=== PATIENT | female | born 1980 | race Caucasian/White ===

== ENCOUNTER 2016-07-13 15:08 | Inpatient (IN) | payer OTHER ==
[2016-07-13 18:44] VITALS: BP 104/70
[2016-07-13 18:46] VITALS: BP 100/77
[2016-07-13 23:01] VITALS: BP 102/60
[2016-07-14 03:20] VITALS: BP 131/79
[2016-07-14 06:04] VITALS: BP 91/57
[2016-07-14 11:10] VITALS: BP 94/53
[2016-07-14 15:36] VITALS: BP 116/74
[2016-07-14 18:18] VITALS: BP 126/74
[2016-07-14 23:01] VITALS: BP 106/73
[2016-07-15 02:56] VITALS: BP 108/68
[2016-07-15 06:38] VITALS: BP 119/81
[2016-07-15 11:25] VITALS: BP 111/77
[2016-07-15 15:08] VITALS: BP 115/72
[2016-07-15 18:18] VITALS: BP 97/65
[2016-07-15 22:57] VITALS: BP 89/57
[2016-07-16 03:01] VITALS: BP 91/50
[2016-07-16 06:32] VITALS: BP 91/66
[2016-07-16 11:12] VITALS: BP 88/56
[2016-07-16] MEDS ORDERED: LEVEMIR FLEX100 U/ML SQ (13:58)
[2016-07-16] MEDS ORDERED: NOVOLOG FLEX100 U/ML SQ (13:59)
[2016-07-16] MEDS ORDERED: DIFLUCAN200 M1 PO (14:04)
== END 2016-07-16 14:40 | disposition home or self-care (01) | DRG 639 ==
LOC: ED 15:08 → MED/SURG 17:37
PROVIDERS: ADMIT Nurse Practitioner Family
DX: E10.65 Type 1 diabetes mellitus with hyperglycemia (principal); E86.9 Volume depletion, unspecified; R20.8 Other disturbances of skin sensation; R51 Headache; F17.200 Nicotine dependence, unspecified, uncomplicated; T38.3X6A Underdosing of insulin and oral hypoglycemic [antidiabetic] drugs, initial encounter; Z96.41 Presence of insulin pump (external) (internal); Z91.120 Patient's intentional underdosing of medication regimen due to financial hardship; Z79.4 Long term (current) use of insulin; Z91.81 History of falling
CPT/HCPCS: J1815; J7030; J7040

== ENCOUNTER → 2016-10-05 | Outpatient (CLI) | payer SELFPAY ==
[~2016-10-05] MED LIST: DIFLUCAN200 M1 PO; LEVEMIR FLEX100 U/ML SQ; NOVOLOG FLEX100 U/ML SQ
== END ==
LOC: LAB 12:24
DX: E10.9 Type 1 diabetes mellitus without complications (principal); E78.2 Mixed hyperlipidemia; I63.9 Cerebral infarction, unspecified; K05.6 Periodontal disease, unspecified

== ENCOUNTER 2016-10-19 13:30 | Outpatient (RCR) | END 2016-11-01 | disposition home or self-care (01) | LOC: OT | DX: E10.21 Type 1 diabetes mellitus with diabetic nephropathy (principal); M25.561 Pain in right knee ==

== ENCOUNTER → 2016-10-26 | Outpatient (REF) | LOC: RAD 14:50 | DX: I63.12 Cerebral infarction due to embolism of basilar artery (principal); I34.0 Nonrheumatic mitral (valve) insufficiency ==

== ENCOUNTER 2016-11-12 21:18 | Emergency (ER) | payer SELFPAY ==
[~2016-11-12] VITALS: Ht 177.8 cm; Wt 81.4 kg
[2016-11-12 23:36] VITALS: BP 123/87
== END 2016-11-12 23:36 | disposition home or self-care (01) ==
LOC: ED 21:18
DX: N92.0 Excessive and frequent menstruation with regular cycle (principal); E10.8 Type 1 diabetes mellitus with unspecified complications; Z79.4 Long term (current) use of insulin; Z86.73 Personal history of transient ischemic attack (TIA), and cerebral infarction without residual deficits

== ENCOUNTER 2017-05-26 18:51 | Emergency (ER) | payer SELFPAY ==
[2017-05-26 19:15] LABS: EOS # 0.1 (0.04-0.40); EOS % 0.8 % (1.0-5.0); HEMATOCRIT 42.7 % (37.0-47.0); HEMOGLOBIN 13.9 g/dL (12.5-16.0); LYMPH# 2.5 (1.50-4.00); MEAN CELL VOLUME 85 fl (78-100); MEAN CORPUSCULAR HEMOGLOBIN 28 pg (27-31); MEAN CORPUSCULAR HGB CONC 33 g/dL (33-37); MONO # 0.4 (0.20-0.80); NEU # 5.3 (1.40-6.50); PLATELET COUNT 315 K/mm3 (130-400); RED BLOOD COUNT 5.05 M/mm3 (4.10-5.30); RED CELL DISTRIBUTION WIDTH 14.4 % (11.5-14.5); WHITE BLOOD COUNT 8.3 K/mm3 (4.8-10.8)
[2017-05-26 19:31] LABS: ALBUMIN 3.4 g/dL (3.5-5.0); ALT/SGPT 29 U/L (9-52); AST-SGOT 17 U/L (14-36); BUN/CREATININE RATIO 16.1 (6.0-26.0); CALCIUM 9.5 mg/dL (8.4-10.2); CARBON DIOXIDE 28 mmol/L (22-30); GLUCOSE 71 mg/dL (65-105); SODIUM 140 mmol/L (137-145); TOTAL BILIRUBIN 0.4 mg/dL (0.2-1.3); TOTAL PROTEIN 6.5 g/dL (6.3-8.2)
[2017-05-26 19:42] LABS: URINE APPEARANCE CLEAR; URINE BILIRUBIN NEGATIVE (NEGATIVE); URINE BLOOD TRACE (NEGATIVE); URINE COLOR YELLOW; URINE KETONE 2+ (NEGATIVE); URINE LEUKOCYTE ESTERASE TRACE (NEGATIVE); URINE NITRATE NEGATIVE (NEGATIVE); URINE PROTEIN(semi-quant) TRACE mg/dL (NEGATIVE); URINE UROBILINOGEN NORMAL (NORMAL)
[2017-05-26 19:44] LABS: ACETAMINOPHEN < 4 ug/mL (10-30); ALCOHOL IN-HOUSE < 10 mg/dL; POTASSIUM 2.6 mmol/L (3.6-5.0)
[2017-05-26] MEDS ORDERED: DESYREL 100MG100 MG PO (19:52)
[2017-05-26] MEDS ORDERED: POTASSIUM CHLO20 ME3 PO (23:36)
[2017-05-26 23:46] VITALS: BP 98/60
== END 2017-05-26 23:46 | disposition home or self-care (01) ==
LOC: ED 18:51
PROVIDERS: Family Medicine
DX: T43.212A Poisoning by selective serotonin and norepinephrine reuptake inhibitors, intentional self-harm, initial encounter (principal); T38.3X2A Poisoning by insulin and oral hypoglycemic [antidiabetic] drugs, intentional self-harm, initial encounter; Y92.009 Unspecified place in unspecified non-institutional (private) residence as the place of occurrence of the external cause; E10.8 Type 1 diabetes mellitus with unspecified complications; Z79.4 Long term (current) use of insulin; F32.9 Major depressive disorder, single episode, unspecified; Z86.73 Personal history of transient ischemic attack (TIA), and cerebral infarction without residual deficits; E87.6 Hypokalemia; A59.01 Trichomonal vulvovaginitis
CPT/HCPCS: J3480